=== PATIENT | female | born 1965 | race Caucasian/White ===

== ENCOUNTER 2016-09-23 19:57 | Emergency (ER) | payer OTHER ==
[~2016-09-23] VITALS: Ht 157.5 cm; Wt 98.9 kg
[~2016-09-23 19:57] MED LIST: AMARYL1 MG PO; ASPIR-LOW81 MG PO; ATORVASTATIN CA40 MG PO; BENADRYL25 MG PO; BENTYL10 MG PO; BUTALB-APAP-CA1 EACH PO; COLACE100 MG PO; CREON DR 3,0001 EACH PO; DICYCLOMINE HCL10 MG PO; EFFEXOR XR75 MG PO; EFFEXOR75 MG PO; GLIMEPIRIDE1 MG PO; INVOKANA100 MG PO; JANUMET 50/11 TABLET PO; JANUMET 50/51 TABLET PO; KEFLEX500 MG PO; METFORMIN HCL500 MG PO; PREMARIN0.3 MG PO; RANITIDINE HCL300 MG PO; REGLAN10 MG PO; SUCRALFATE1 GM PO; TOPIRAMATE25 MG PO; VICODIN 5-3001 EACH PO; ZOFRAN ODT4 MG PO; ZOFRAN4 MG PO
[2016-09-23] MEDS ORDERED: FENOFIBRATE160 M1 PO (22:31)
[2016-09-23] MEDS ORDERED: EFFEXOR75 MG PO (22:32)
[2016-09-23 23:01] VITALS: BP 112/66
== END 2016-09-23 23:04 | disposition home or self-care (01) ==
LOC: EME 19:57
DX: R51 Headache (principal); E11.9 Type 2 diabetes mellitus without complications; E78.5 Hyperlipidemia, unspecified
CPT/HCPCS: 99281; 99284; J1100; J1885; J3360; J7030

== ENCOUNTER 2017-03-30 20:09 | Emergency (ER) | payer OTHER ==
[~2017-03-30 20:09] MED LIST changes: +FENOFIBRATE160 M1 PO
== END 2017-03-30 21:00 | disposition left against medical advice (07) ==
LOC: EME 20:09
DX: R10.9 Unspecified abdominal pain (principal); Z53.21 Procedure and treatment not carried out due to patient leaving prior to being seen by health care provider

== ENCOUNTER 2017-10-28 04:48 | Emergency (ER) | payer OTHER ==
[~2017-10-28] VITALS: Ht 157.5 cm; Wt 104.7 kg
[2017-10-28 06:01] VITALS: BP 140/82
== END 2017-10-28 06:02 | disposition home or self-care (01) ==
LOC: EME 04:48
DX: M62.838 Other muscle spasm (principal)
CPT/HCPCS: 93971; 99281; 99283